=== PATIENT | male | born 1955 | race Caucasian/White ===

== ENCOUNTER 2017-01-10 08:57 | Outpatient (CLI) | payer BC ==
[2017-01-10 09:54] LABS: eGFR (African) > 60; eGFR (Non-African) > 60
== END 2017-01-10 08:58 ==
LOC: LAB 08:57
PROVIDERS: ATTEND Urology
DX: E11.9 Type 2 diabetes mellitus without complications (principal)
CPT/HCPCS: 36415; 80053; 82043; 84439; 84443

== ENCOUNTER 2017-01-16 13:55 | Outpatient (CLI) | payer BC ==
--- NOTE | 2017-01-16 17:46 | Diagnostic Imaging Report ---
[facility] [address] [facility].[address] [address] Report Submission Date: January 16, 2017 4:15:13 PM CDT Patient Study Name: DOUG DUMONT Date: January 16, 2017 2:08:08 PM CDT Modality Type: US Gender: M Description: US THYROID SOFT TISS HEAD/NCK : 51 Institution: [facility] Physician: MEGGAN FAN Ultrasound thyroid per 2: Followup goiter Findings: No prior exams have been provided. The right thyroid lobe measures 6.8 x 2 x 4.1 cm and exhibits diffuse parenchymal heterogeneity. A 4 x 3 x 5 mm hypoechoic right upper pole thyroid nodule may be cystic. A 1.8 x 1.2 x 1.3 cm solid, mixed echogenicity lower pole right thyroid nodule is present. The thyroid isthmus measures 0.4 cm in thickness. The left thyroid lobe measures 6.1 x 2.1 x 2.4 cm and exhibits diffuse parenchymal heterogeneity without nodule. Impression: 1. Diffuse thyroid parenchymal heterogeneity. Findings potentially represent sequela of thyroid. 2. 0.5 cm and 1.8 cm indeterminate right thyroid nodules. Recommend comparison to the prior exam. Electronically signed on January 16, 2017 4:15:13 PM CDT by: Austin MCLAUGHLIN
== END 2017-01-16 13:56 ==
LOC: RAD 13:55
PROVIDERS: ATTEND Internal Medicine Endocrinology, Diabetes & Metabolism
DX: E04.2 Nontoxic multinodular goiter (principal)
CPT/HCPCS: 76536

== ENCOUNTER 2017-07-16 09:56 | Outpatient (CLI) | payer BC ==
[2017-07-16 10:41] LABS: eGFR (African) > 60; eGFR (Non-African) > 60
== END 2017-07-16 09:57 ==
LOC: LAB 09:56
PROVIDERS: ATTEND Internal Medicine Endocrinology, Diabetes & Metabolism
DX: E11.9 Type 2 diabetes mellitus without complications (principal)
CPT/HCPCS: 36415; 80053; 80061; 82043; 83036; 84439; 84443

== ENCOUNTER 2017-08-14 11:37 | Outpatient (CLI) | payer BC | END 2017-08-14 11:40 | LOC: LAB 11:37 | PROVIDERS: ATTEND Urology | DX: R97.20 Elevated prostate specific antigen [PSA] (principal) | CPT/HCPCS: 36415; 84153 ==

== ENCOUNTER 2018-04-13 09:27 | Outpatient (CLI) | payer BC ==
[2018-04-13 10:06] LABS: eGFR (African) > 60; eGFR (Non-African) > 60
== END 2018-04-13 09:30 ==
LOC: LAB 09:27
PROVIDERS: ATTEND Internal Medicine Endocrinology, Diabetes & Metabolism
DX: E11.65 Type 2 diabetes mellitus with hyperglycemia (principal); E78.00 Pure hypercholesterolemia, unspecified
CPT/HCPCS: 80053; 80061; 82043; 84443

== ENCOUNTER 2019-02-22 09:11 | Emergency (ER) | payer BC ==
[2019-02-22 20:07] LABS: BASOPHILS % 0.3 % (0.0-1.5); NEUTROPHILS # 4.2 # k/uL (1.4-7.7)
--- NOTE | 2019-02-22 20:23 | ED Physician Documentation ---
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 Feels that he might be getting dehydrated. Has not been drinking well over the last several days. Has been getting lightheaded and dizzy, feels jittery. Has been urinating several times. Urine is concentrated some. Timing: still present - ROS CONST: denies: fever, chills - PAST HX Past History: other (hypothyroidism) Other History: diabetes Type 2 Immunizations: referred to PCP - SOCIAL HX Alcohol Use: none Drug Use: none ED Results Lab/Radiology - Lab Results Lab Results: Lab Results 02/22/19 20:00 WBC 6.20 K/ul K/ul (4.00-12.00) RBC 4.65 M/ul M/ul (3.90-5.20) Hgb 14.2 g/dL g/dL (12.0-18.0) Hct 42.1 % % (37.0-53.0) MCV 91.0 fl fl (80.0-100.0) MCH 30.5 pg pg (28.0-34.0) MCHC 33.7 g/dL g/dL (30.0-36.0) RDW 14.9 % H % (11.3-14.3) Plt Count 216 K/mm3 K/mm3 (130-400) Neut % (Auto) 68.6 % % (39.0-79.0) Lymph % (Auto) 24.8 % % (16.0-50.0) [place] % (Auto) 3.7 % % (0.0-11.0) Eos % (Auto) 2.6 % % (0.0-6.8) Baso % (Auto) 0.3 % % (0.0-1.5) Neut # (Auto) 4.2 # k/uL # k/uL (1.4-7.7) Lymph # (Auto) 1.5 # k/uL # k/uL (0.6-4.0) [place] # (Auto) 0.2 # k/uL # k/uL (0.0-0.9) Eos # (Auto) 0.2 # k/uL # k/uL (0.0-0.6) Baso # (Auto) 0.0 # k/uL # k/uL (0.0-0.5) - Orders Orders: ED Orders Category Date Time Status CBC/PLATELET/DIFF Routine Lab 02/22/19 20:00 Completed CMP Routine Lab 02/22/19 20:00 Received TROPONIN I Routine Lab 02/22/19 20:00 Received URINALYSIS Routine Lab 02/22/19 Uncollected EKG WITH COMPARISON Routine Ther 02/22/19 Ordered General Adult Physical Exam - PHYSICAL EXAM GENERAL APPEARANCE: no distress NECK: normal inspection, thyroid normal, supple RESPIRATORY: no resp distress, chest non-tender, breath sounds normal. No: wheezes, rales, rhonchi CVS: reg rate & rhythm, heart sounds normal, equal pulses, no murmur ABDOMEN: soft, no organomegaly, normal bowel sounds, no abdominal bruit, no distension, non-tender BACK: normal inspection SKIN: warm/dry, normal color EXTREMITIES: no edema NEURO: oriented X3, CN's nml as tested, mood/affect nml, cognition normal Discharge Clincal Impression: Lightheadedness Referrals: Tameka Colorado MD [Primary Care Provider] - 2 Days Additional Instructions: Try to drink enough fluids until your urine is a light yellow color. Check your temp to make sure you re not running a low grade fever. If you develop any further symptoms to follow-up with your primary care provider or return to the ED. Continue to monitor your blood sugar at home. Condition: Stable Disposition: 01 HOME, SELF-CARE Decision to Admit: NO Date of Decison to Admit: 02/22/19 Decision Time: 21:27
[2019-02-22 20:32] LABS: eGFR (Non-African) > 60
[2019-02-22 21:17] LABS: APPEARANCE,URINE CLEAR (CLEAR); COLOR,URINE YELLOW (YELLOW); OCCULT BLOOD,URINE NEGATIVE (NEGATIVE); UROBILINOGEN URINE 0.2 Eu (0.2-1.0)
[2019-02-22 23:52] VITALS: BP 148/77
== END 2019-02-22 21:33 | disposition home or self-care (01) ==
LOC: ED 19:11
DX: R42 Dizziness and giddiness (principal); E86.0 Dehydration
CPT/HCPCS: 80053; 81002; 84484; 85025; 96372; 99283; 99284; S1016

== ENCOUNTER 2019-05-23 08:10 | Outpatient (CLI) | payer BC ==
[2019-06-05 07:44] LABS: BASOPHILS % 0.3 % (0.0-1.5); HDL 41 mg/dL (>40); NEUTROPHILS # 5.2 # k/uL (1.4-7.7); eGFR (Non-African) > 60
== END 2019-05-23 08:15 ==
LOC: LAB 08:10
PROVIDERS: ATTEND Nurse Practitioner Adult Health
DX: E11.65 Type 2 diabetes mellitus with hyperglycemia (principal); E78.00 Pure hypercholesterolemia, unspecified; I10 Essential (primary) hypertension; I25.10 Atherosclerotic heart disease of native coronary artery without angina pectoris
CPT/HCPCS: 36415; 80053; 80061; 82043; 82985; 84439; 84443; 85025